=== PATIENT | female | born 1970 | race American Indian/Alaskan Native ===

== ENCOUNTER 2017-04-08 17:56 | Emergency (ER) | payer OTHER ==
[2017-04-08] MEDS ORDERED: ASPIRIN PO ONE (19:02)
[2017-04-08 19:44] LABS: BUN/Creatinine Ratio 13; Blood Urea Nitrogen 12 mg/dL (7-17); Calcium 8.9 mg/dL (8.4-10.2); Hemolysis Index 3
[2017-04-08 20:10] LABS: Basophils % (Auto) 0.6 % (0.0-1.8); Eosinophils # (Auto) 0.1 K/mm3 (0.0-0.4); Eosinophils % (Auto) 1.1 % (0.0-4.3); Hematocrit 35.2 % (30.3-42.9); Hemoglobin 11.2 gm/dl (10.1-14.3); Lymphocytes # (Auto) 1.2 K/mm3 (1.2-5.4); Lymphocytes % (Auto) 15.8 % (13.4-35.0); Mean Corpuscular HGB Conc 32 % (30-34); Mean Corpuscular Volume 76 fl (79-97); Monocytes # (Auto) 0.5 K/mm3 (0.0-0.8); Monocytes % (Auto) 6.1 % (0.0-7.3); Platelet Count 261 K/mm3 (140-440); Red Blood Count 4.64 M/mm3 (3.65-5.03); Red Cell Distribution Width 18.5 % (13.2-15.2)
[2017-04-08 20:12] LABS: Mean Corpuscular Hemoglobin 24 pg (28-32)
[2017-04-09] MEDS ORDERED: ASPIRIN ONE (22:50)
[2017-04-09] MEDS ORDERED: TORADOL IM ONE (23:34)
[2017-04-09] MEDS ORDERED: MUCINEX ER PO ONE (23:34)
[2017-04-09] MEDS ORDERED: TESSALON PERLES PO ONE (23:34)
--- NOTE | 2017-04-09 23:34 | XRay Report ---
FINAL REPORT PROCEDURE: XR CHEST 1V AP TECHNIQUE: Chest radiograph anteroposterior view. CPT 26196 HISTORY: chest pain COMPARISON: No prior studies are available for comparison. FINDINGS: Heart: Normal. Mediastinum/Vessels: Normal. Lungs/Pleural space: Normal. Bony thorax: No acute osseous abnormality. Life support devices: None. IMPRESSION: No acute cardiopulmonary abnormality.
[2017-04-09 23:39] VITALS: BP 142/69
--- NOTE | 2017-04-09 23:43 | Emergency Department Report ---
HPI - General Chief Complaint: Chest Pain - HPI HPI: The patient is a 46-year-old female presents for evaluation of Cough and chest pain. The patient reports that her cough for the past 2 weeks, associated with aching chest pain for the past one week, 8/10 in severity, exacerbated with cough, and improved at rest. The patient denies fever, neck pain, parasthesias, dyspnea, hemoptysis, dizziness, syncope, unilateral leg swelling, calf muscle pain. Patient also denies cocaine or other stimulant use, history of DVT or PE , recent immobilization, or history of cancer. ED Past Medical Hx - Past Medical History Previous Medical History?: Yes Hx Hypertension: Yes Hx Arthritis: Yes Hx Asthma: Yes - Surgical History Past Surgical History?: Yes Hx Cholecystectomy: Yes - Social History Smoking Status: Never Smoker Substance Use Type: None - Medications Home Medications: Home Medications Medication Instructions Recorded Confirmed Last Taken Type ALBUTEROL Inhaler [ProAir HFA 2 puff IH QID PRN #1 inhalation 04/09/17 Unknown Rx Inhaler] Azithromycin [Zithromax Z-ALIREZA] 250 mg PO QDAY #6 tablet 04/09/17 Unknown Rx Benzonatate [Tessalon Perles] 100 mg PO Q8HR #14 capsule 04/09/17 Unknown Rx traMADol [Ultram 50 MG tab] 50 mg PO Q6HR PRN #15 tablet 04/09/17 Unknown Rx ED Review of Systems ROS: Stated complaint: C/P L ARM PAIN Other details as noted in HPI Constitutional: denies: fever ENT: denies: throat or neck pain Respiratory: reports cough, shortness of breath Cardiovascular: denies: chest pain Endocrine: denies unexplained weight loss or gain Gastrointestinal: denies: abdominal pain, nausea Genitourinary: denies: dysuria Musculoskeletal: denies: leg swelling Skin: denies: rash Neurological: denies: headache Hematological/Lymphatic: denies: easy bleeding or easy bruising Psych: denies sadness or hopelessness Physical Exam - Physical Exam Vital Signs: Vital Signs 04/08/17 04/09/17 18:55 21:36 Temperature 98.9 F 98.9 F Pulse Rate 62 54 L Respiratory 16 14 Rate Blood Pressure 122/80 145/75 O2 Sat by Pulse 100 100 Oximetry Physical Exam: General: well-nourished, well-developed, no acute distress Head: Normocephalic, atraumatic Eyes: normal sclera ENT: Mucous membranes are pink and moist Neck: trachea midline, neck supple, No neck stiffness, no cervical adenopathy Respiratory: Breath sounds equal bilaterally, no wheezing, rales, or rhonchi Cardio: S1 and S2 present, no murmurs, rubs, gallops, capillary refill is brisk Abdomen: Normoactive bowel sounds, soft abdomen, no rigidity, no guarding or rebound tenderness Musc: No pitting edema Skin: No rash Neuro: no facial drooping, normal speech Psych: Normal affect ED Course Vital Signs 04/08/17 04/09/17 18:55 21:36 Temperature 98.9 F 98.9 F Pulse Rate 62 54 L Respiratory 16 14 Rate Blood Pressure 122/80 145/75 O2 Sat by Pulse 100 100 Oximetry ED Medical Decision Making - Lab Data Result diagrams: 04/08/17 19:09 04/08/17 19:09 - Medical Decision Making The patient was seen and examined by myself. The patient is placed on a cardiac rn and continuous pulse ox. On initial evaluation, the patient was found to be in no distress. Evaluation orders were placed. EKG was negative for findings suggestive of acute cardiac infarct. The patient is given IM Toradol for pain, Tessalon Perles for their cough and Mucinex for nasal congestion. Lab results were not concerning. Chest x-ray is negative for pulmonary vessel congestion, pleural effusion, focal consolidation, or other acute cardio pulmonary disease process. The patient was reevaluated and reported that their symptoms were markedly improved. On reexamination the patient is found to have normal respiratory rate and O2 sat on pulse oximetry, with no costal retractions or diminishment of breath sounds on auscultation. The patient is stable for discharge with outpatient follow-up. The patient is given follow-up and return instructions. The patient expressed understanding and agreed with the plan. The patient is discharged in stable condition. Critical care attestation.: If time is entered above; I have spent that time in minutes in the direct care of this critically ill patient, excluding procedure time. ED Disposition Clinical Impression: Acute chest pain, Upper respiratory infection, acute, Acute viral syndrome Disposition: - TO HOME OR SELFCARE Is pt being admited?: No Does the pt Need Aspirin: No Condition: Stable Instructions: Chest Pain (ED), Costochondritis (ED), Upper Respiratory Infection (ED), Viral Syndrome (ED) Prescriptions: ALBUTEROL Inhaler [ProAir HFA Inhaler] 2 puff IH QID PRN #1 inhalation PRN Reason: Shortness Of Breath Azithromycin [Zithromax Z-ALIREZA] 250 mg PO QDAY #6 tablet Benzonatate [Tessalon Perles] 100 mg PO Q8HR #14 capsule traMADol [Ultram 50 MG tab] 50 mg PO Q6HR PRN #15 tablet PRN Reason: Pain Referrals: DEV MEZA MD [Primary Care Provider] - 3-5 Days Time of Disposition: 23:35
== END 2017-04-10 | disposition home or self-care (01) ==
LOC: ED 17:56
DX: J06.9 Acute upper respiratory infection, unspecified (principal); R07.89 Other chest pain
CPT/HCPCS: 36415; 71045; 80048; 84484; 85025; 93005; 93010; 99284; J1885

== ENCOUNTER 2021-05-25 10:38 | Outpatient (CLI) | payer OTHER ==
--- NOTE | 2021-05-25 12:56 | XRay Report ---
LUMBOSACRAL SPINE 3 VIEWS INDICATION: BACK PAIN. COMPARISON: None. IMPRESSION: There is minimal levocurvature of the lumbar spine on the frontal image. Normal alignmen t on the lateral image. Moderate to severe discogenic DJD and facet arthropathy are identified at L5 -S1. Mild facet arthropathy at L3-4 and L4-5. No acute osseous or soft tissue abnormality. BILATERAL KNEES 2 VIEWS INDICATION: Bilateral knee pain. COMPARISON: None. IMPRESSION: No acute osseous or soft tissue abnormality. Mild tricompartmental osteoarthritic dell nges are identified in the right knee. Mild medial compartment joint space narrowing is noted in the left knee. No significant joint effusion. Signer Name: Bon Singh Jr, MD Signed: 05/25/2021 12:51 PM Workstation Name: [id number]
== END 2021-05-25 10:39 | disposition home or self-care (01) ==
LOC: XRAY 10:38
PROVIDERS: ATTEND Internal Medicine
DX: M17.0 Bilateral primary osteoarthritis of knee (principal); M47.817 Spondylosis without myelopathy or radiculopathy, lumbosacral region
CPT/HCPCS: 72100